=== PATIENT | male | born 1970 | race Two or more races ===

== ENCOUNTER 2024-03-01 14:26 | Emergency (ER) | payer BC, MEDICAID, SELFPAY ==
[2024-03-01 14:29] VITALS: BP 161/91; PULSE 100; RESP 18; TEMP 36.8; O2SAT 98; BMI 29.6
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
--- NOTE | 2024-03-01 15:32 | XR_ITS ---
Examination: CT brain head without contrast. 2-D sagittal coronal reconstructions Date and time of exam:March 01, 2024 1546 hrs. Indications: Patient fell today with injury of the head, head pain CTDI: vol (mGy):54.2 DLP: (mGycm):1137 Technique: Multiple CT axial sections of the brain have been obtained, 5 mm slice thickness. Contrast has not been administered. 2-D sagittal, coronal reconstructions have been obtained Low dose protocols were performed. One or more of the following dose reduction techniques were used; automated exposure control, adjustment of the mA and/or KV according to patient size, use of iterative reconstruction technique. Findings: No significant ventricular enlargement. Intra-axial or extra-axial hemorrhage density is not seen. No mass effect or midline shift Basal cisterns are not remarkable. Fourth ventricle is midline. Cranial vault intact. Impression: Negative for acute hemorrhage, mass effect or midline shift
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
[2024-03-01 16:00] VITALS: BP 140/81; PULSE 88; RESP 19; TEMP 36.6; O2SAT 98
--- NOTE | 2024-03-01 16:56 | PRELIM_ITS ---
CT scan of the head without intravenous contrast (axial sections with sagittal and coronal reformats) March 01, 2024 1546 hours Clinical History: Fell, hit head Comparison: None.Findings:No evidence of intracranial hemorrhage, mass effect or midline shift. The ventricles and CSF spaces are unremarka ble. There is atheromatous calcification of the intracranial arteries. The calvarium is intact. The m astoid air cells and the visualized paranasal sinuses are clear.Impression:No evidence of intracrania l hemorrhage, midline shift or calvarial fracture.Other findings as described above. Report Earle apodaca Signed By: Sunny King 03/01/2024 4:56:39 PM [EST]
[2024-03-01 18:06] VITALS: BP 140/86; PULSE 72; RESP 16; O2SAT 96
== END 2024-03-01 18:10 | disposition home or self-care (01) ==
PROVIDERS: Emergency Provider Emergency Medicine; PCP Family Medicine
DX: S09.90XA Unspecified injury of head, initial encounter (principal); G61.0 Guillain-Barre syndrome; W19.XXXA Unspecified fall, initial encounter
CPT/HCPCS: 70450; 99284

== ENCOUNTER 2024-09-18 17:18 | Emergency (ER) | payer MEDICAID, SELFPAY ==
[2024-09-18 17:54] VITALS: BP 129/77; PULSE 96; RESP 20; TEMP 36.8; O2SAT 94
--- NOTE | 2024-09-18 18:24 | EKG_ITS ---
[facility] Test Date: 2024-09-18 Pat Name: ZACHARY MARADIAGA Department: Room: - Gender: Male [employer]: : 1970 Requested By: Oscar Lyles Order Number: [id number] Reading MD: Oscar Lyles Measurements Intervals [place] Rate: 89 P: 49 MN: 161 QRS: 69 QRSD: 111 T: 63 QT: 351 QTc: 427 Interpretive Statements SINUS RHYTHM MODERATE INTRAVENTRICULAR CONDUCTION DELAY [110+ ms QRS DURATION] ST ELEVATION, PROBABLY EARLY REPOLARIZATION [ST ELEVATION WITH NORMALLY INFLECTED T-WAVE] Compared to ECG 08/04/2022 11:57:08 Intraventricular conduction delay now present ST (T wave) deviation now present Early repolarization now present /store/S0/[id number].pdf
--- NOTE | 2024-09-18 18:24 | XR_ITS ---
Examination: AP chest single view FINDINGS: AP sitting portable chest single view Date and time: September 18, 2024, 1846 hours Comparison August 04, 2022 INDICATIONS: Shortness of breath today. FINDINGS: Normal heart size Minor subsegmental atelectasis left base. No lobar pneumonia or pulmonary edema Intact osseous structures IMPRESSION: No pneumonia or pulmonary edema.
--- NOTE | 2024-09-18 18:25 | EDRME_ITS ---
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 Patient states it doesn't feel like it's from his ascites. Chief Complaint: Shortness of Breath/Dyspnea Time Seen by Provider: 09/18/24 17:40 Vital signs: Vital Signs Temperature 98.2 F 09/18/24 17:54 Pulse Rate 96 09/18/24 17:54 Respiratory Rate 20 09/18/24 17:54 Blood Pressure 129/77 09/18/24 17:54 Pulse Oximetry (%) 94 L 09/18/24 17:54 Oxygen Delivery Method Room Air 09/18/24 17:54
[2024-09-18 18:54] LABS: Lactate (Lactic Acid) 2.4 mMol/L (0.4-2.0)
[2024-09-18 19:03] LABS: Basophils # (Auto) 0.1 Thou/mm3 (0.0-0.2); Basophils % (Auto) 1 % (0-2.5); Eosinophils # (Auto) 0.1 Thou/mm3 (0.0-0.5); Eosinophils % (Auto) 2 % (0-10); Hematocrit 45.2 % (41.0-53.0); Hemoglobin 16.4 g/dL (13.5-16.0); Immature Granulocytes Auto 0.02 Thou/mm3 (0.00-0.00); Lymphocytes # (Auto) 2.1 Thou/mm3 (1.0-4.8); Lymphocytes % (Auto) 31 % (10-50); Mean Corpuscular HGB Conc 36.3 g/dl (31.0-37.0); Mean Corpuscular Hemoglobin 32.0 pg (25.0-35.0); Mean Corpuscular Volume 88 fL (80-100); Monocytes # (Auto) 1.0 Thou/mm3 (0.0-0.8); Monocytes % (Auto) 14 % (0-12); Neutrophils # (Auto) 3.6 Thou/mm3 (1.8-7.7); Neutrophils % (Auto) 53 % (37-80); Nucleated Red Blood Cell # 0.00 Thou/mm3 (0.00-0.00); Nucleated Red Blood Cell % 0 /100 WBC (0); Platelet Count 127 Thou/mm3 (140-440); RDW Standard Deviation 44.8 fL (35.1-43.9); Red Blood Count 5.13 Miln/mm3 (4.50-5.90); White Blood Count 6.8 Thou/mm3 (3.8-10.6)
[2024-09-18 19:19] LABS: B-Type Natriuretic Peptide < 20 pg/mL (0-100)
[2024-09-18 19:27] LABS: Alanine Aminotransferase 98 U/L (10-49); Albumin, Serum 4.4 gm/dL (3.5-5.0); Albumin/Globulin Ratio 1.2 (1.2-2.2); Alkaline Phosphatase 119 U/L (46-116); Anion Gap 12 (7-16); Aspartate Amino Transferase 117 U/L (0-34); BUN/Creatinine Ratio 9 Ratio (12-20); Bilirubin,Total 1.3 mg/dL (0.3-1.2); Blood Urea Nitrogen 6 mg/dL (9-23); Calcium 9.6 mg/dL (8.3-10.6); Calcium (Corrected) 9.6 mg/dL (8.5-10.1); Carbon Dioxide 21.5 mMol/L (20.0-31.0); Chloride 104 mMol/L (98-107); Creatinine (Component) 0.7 mg/dL (0.6-1.3); Globulin 3.6 gm/dL (2.3-3.5); Glucose 102 mg/dL (74-106); Osmolality,Calculated 271 (275-295); Potassium 4.4 mMol/L (3.4-5.1); Procalcitonin 0.14 ng/ml (0.0-0.49); Sodium 137 mMol/L (136-145); Total Protein 8.0 gm/dL (5.7-8.2); Troponin I < 0.020 ng/mL (0.0-0.045); eGFR > 60 See Note
[2024-09-18 21:50] VITALS: BP 141/76; PULSE 87; RESP 17; TEMP 37; O2SAT 96
[2024-09-18 21:54] LABS: Reflex Lactate? Y
--- NOTE | 2024-09-18 22:03 | PD.EDSOB ---
ED SOB =RME/HPI General Chief Complaint: Shortness of Breath/Dyspnea Stated Complaint: SOB X 1.5 weeks, worse today Time Seen by Provider: 09/18/24 17:40 Arrival date/time: 09/18/24 17:18 RME / HPI RME / HPI Narrative: 09/18/24 17:18 54M with history of HTN, alcoholic cirrhosis, and Guillain-[place] (last year) presents to ED with 1.5 weeks of worsening cough and SOB. Patient states it doesn't feel like it's from his ascites. DR. CHAPARRO MAIN ED EVALUATION: 54 y/o male with Hx of GB confined to wheelchair presenting with scantly productive cough. Denies fever, chills, nausea, and vomiting. Patient reports mild shortness of breath and dyspnea on exertion. No pleuritic chest pain or lower extremity pain. No other concerns or complaints expressed at this time. Related Data Home Medications ?Medication ?Instructions ?Recorded ?Confirmed ibuprofen 800 mg tablet 800 mg PO TID PRN Pain 08/20/19 09/22/23 lisinopril 20 mg tablet 20 mg PO QDAY 08/20/19 09/22/23 amlodipine 10 mg tablet 1 tab PO DAILY 10/07/21 09/22/23 lactulose 10 gram/15 mL oral 15 ml PO DAILY PRN Constipation 10/07/21 09/22/23 solution (Constulose) hydrochlorothiazide 12.5 mg tablet 12.5 mg PO DAILY 09/22/23 09/22/23 lorazepam 1 mg tablet 1 mg PO BID 09/22/23 09/22/23 pantoprazole 40 mg tablet,delayed 40 mg PO DAILY 09/22/23 09/22/23 release varenicline tartrate 1 mg tablet 1 mg PO BID 09/22/23 09/22/23 Previous Rx's ?Medication ?Instructions ?Recorded amlodipine 5 mg tablet 10 mg (2 x 5 mg) PO DAILY #60 tabs 09/28/23 folic acid 1 mg tablet 1 mg PO BID #60 tabs 09/28/23 gabapentin 300 mg capsule 300 mg PO TID #90 caps 09/28/23 hydrochlorothiazide 12.5 mg capsule 12.5 mg PO QDAY #30 caps 09/28/23 lactulose 20 gram/30 mL oral 10 g (15 mL) PO TID #900 mL 09/28/23 solution lisinopril 20 mg tablet 20 mg PO BID #60 tabs 09/28/23 melatonin 3 mg tablet 6 mg (2 x 3 mg) PO HS PRN Insomnia 09/28/23 #60 tabs thiamine mononitrate (vit B1) 100 100 mg PO BID #60 tabs 09/28/23 mg tablet ipratropium 20 mcg-albuterol 100 2 puff inhalation Q6H PRN 09/18/24 mcg/actuation mist for inhalation shortness of breath or wheezing #4 (Combivent Respimat) grams prednisone 20 mg tablet 40 mg PO QDAY 5 days #10 tabs 09/18/24 Allergies Allergy/AdvReac Type Severity Reaction Status Date / Time No Known Allergies Allergy Verified 10/08/21 12:22 Review of Systems Review of Systems Systems Reviewed: All systems reviewed, normal except as documented Past Medical History Past Medical History CARDIAC: Positive Cardiac Disorders and Hypertension GASTROINTESTINAL: Positive Gastrointestinal Disorders and Cirrhosis MUSCULOSKELETAL: Positive Musculoskeletal Disorders and Arthritis PSYCHO/SOCIAL: Positive Anxiety OTHER HISTORY: Positive Chicken Pox Family History FAMILY HISTORY: Positive Family Respiratory Disorders, Family Cardiac Disorders, Family Gastrointestinal Problems and Family Surgery Social History SMOKING STATUS: Former smoker ED Exam Narrative Physical exam: GEN. APPEARANCE: The patient is alert awake oriented X-3 in no distress, appears uncomfortable, does not look ill/toxic.? Patient has good eye contact.? Patient is cooperative. VITALS:? All vitals were reviewed and the pulse ox is 99% on room air which is normal according to my interpretation. HEENT: Normocephalic, atraumatic.? Pupils are equal and reactive.? Oral mucosa is moist. Patent Nares NECK: Supple, nontender, no thyromegaly, no meningismus, no JVD, no step offs CHEST: Symmetrical, atraumatic, and with equal expansion , Nontender on palpation no deformity and no crepitus. CARDIOVASCULAR: Heart regular rhythm no murmur or gallop rub or extra beats. LUNGS: Diminished breath sounds bilaterally with symmetrical chest rise.? No laboring tachypnea or wheezing.? No intercostal subcostal retraction.? No rales and no rhonchi. ABDOMEN: Soft, flat, nontender to palpation, no guarding or rebound tenderness.? There are no abnormal masses palpated.? Active and normal bowel sounds. EXTREMITIES: Nontender.? Trace edema.? No cyanosis.? Patient is able to move all 4 extremities well, with full ROM and good CSM. SKIN: Warm and dry, no jaundice or rashes noted. MUSCULOSKELETAL: No lubar or midline bony tenderness.? There is no CVA tenderness.? No paraspinal muscle spasm or tenderness. NEURO: Patient is COWAN x 4, Cranial nerves II through XII grossly intact.? There is no focal neurologic deficits noted.? GCS is 15, PNS and RESPIRATORY ASSISTANT appear grossly intact. PSYCHIATRIC: Patient is in normal mood and affect, cooperative, no SI or HI or hallucinations. Course Course Course Narrative: CXR is ordered for determining the etiology of shortness of breath. Quality Measures none Orders Category Date Time Status Bedside COVID-19 Antigen Test NOW Care 09/18/24 18:26 Active Bedside Influenza A&B Antigen Test NOW Care 09/18/24 18:26 Completed EKG (ED ONLY) *Do not use* NOW Care 09/18/24 18:24 Completed EKG (ED Only) Stat Exams 09/18/24 18:24 Draft XR chest 1V portable Stat Exams 09/18/24 18:24 Completed B-Type Natriuretic Peptide Stat Lab 09/18/24 18:47 Completed CBC Stat Lab 09/18/24 18:47 Completed Comprehensive Metabolic Panel Stat Lab 09/18/24 18:47 Completed Lactate (Lactic Acid) Stat Lab 09/18/24 18:47 Completed Lactic Acid, 3 HR Stat Lab 09/18/24 22:13 Completed Procalcitonin Stat Lab 09/18/24 18:47 Completed Troponin I Stat Lab 09/18/24 18:47 Completed Albuterol/Ipratr Rt Meera [Duoneb Rt Meera] Med 09/18/24 22:00 Discontinued 3 ml INH X1 ONE Vital Signs Vital signs: Vital Signs Temperature 98.2 F 09/18/24 17:54 Pulse Rate 96 09/18/24 17:54 Respiratory Rate 20 09/18/24 17:54 Blood Pressure 129/77 09/18/24 17:54 Pulse Oximetry (%) 94 L 09/18/24 17:54 Oxygen Delivery Method Room Air 09/18/24 17:54 Shortness of Breath / Dyspnea MDM Narrative MDM Narrative:: Scribe Attestation: I, Pina Estrada, am scribing for and in the presence of Dr. Chaparro. Provider Notation: Although this document has been carefully reviewed, there may still be some phonetic and other typographical errors.? These errors are purely grammatical due to imperfections in the software program and should not be construed in any way to? compromise the substance of the patient's medical care during this visit. 54 y/o male with Hx of GB confined to wheelchair presenting with scantly productive cough. Denies fever, chills, nausea, and vomiting. Patient reports mild shortness of breath and dyspnea on exertion. Please see PE findings. Laboratory markers and chest x-ray are unremarkable. Patient treated with nebulizer therapy with subjective improvement and remarkable increased air flow. Will treat for viral bronchitis. Disposition to home with PO steroids and inhaler, Prednisone and inhaler. Patient data External records reviewed:: [facility] previous records ( 03/01/24. Patient was seen for Closed head injury.) Clinical information provided by:: patient Social determinants that could affect healthcare access:: none Patient has the following chronic illnesses:: Hypertension, Cirrhosis, Arthritis, Anxiety, GB How is presenting disease/condition affected by chronic disease/condition?: exacerbated by Evaluation data The following diagnostics were reviewed and interpreted by me:: lab results, radiology exam(s) and EKG tracing(s) (EKG at 18:36 shows normal sinus rhythm at 89, pathological st elevation, no ventricular ectopy, axis slightly rightward, intervals normal, per my interpretation.) Lab and/or radiology exams considered but not ordered:: None Interpretation Summary: RADIOLOGY Chest X-Ray: Patient: ZACHARY MARADIAGA Med. Record#: [id number] Birthdate: 1970 Age/Sex: 54 / M Location: [facility] Attending Dr: Ordering Physician: Oscar Lyles PA-C Date of Service: 09/18/24 Procedure(s): XR chest 1V portable Accession Number(s): [id number] cc: Ramesh Montgomery MD; Oscar Lyles PA-C; Parag Cisneros MD~ Examination: AP chest single view FINDINGS: AP sitting portable chest single view Date and time: September 18, 2024, 1846 hours Comparison August 04, 2022 INDICATIONS: Shortness of breath today. FINDINGS: Normal heart size Minor subsegmental atelectasis left base. No lobar pneumonia or pulmonary edema Intact osseous structures IMPRESSION: No pneumonia or pulmonary edema. Dictated By: Ramesh Montgomery MD Signed By: <Electronically signed by Ramesh Montgomery MD in OV> 09/18/24 1930 Medications / Prescriptions Medications or Prescriptions considered but not ordered:: None Medication administrations:: Medication Administration History Discontinued Medications Albuterol/Ipratropium (Albuterol/Ipratropium (Duoneb) Rt Meera 3 Ml Nebu) 3 ml INH X1 ONE Stop: 09/18/24 22:01 Last Admin: 09/18/24 22:11 Dose: 3 ml Documented By: DM See above Consultations Consultation(s) initiated? (list below): No Diagnosis Shortness of Breath Differential Diagnosis: congestive heart failure, community acquired pneumonia, asthma with exacerbation and pulmonary embolism Most likely diagnosis given after review of the tests above:: Viral bronchitis Admission Indicated Admission indicated?: not indicated Explain why admission is indicated or not indicated:: Patient does not meet admission criteria. Admission Request Was there a request for admission?: No Disposition Plan Disposition Plan: Discharge Discharge Attestation Discharge Attestation: The patient and all family members were given an opportunity to ask questions and understood the discharge instructions. Discharge instructions specifically effects, indications for sooner follow up or return to the emergency department, and the expected course of current diagnosis. Patient condition: Stable Discharge Plan Plan Patient Disposition: HOME (Self Care) Patient condition on transfer: Stable Prescriptions/Referrals Prescriptions/Med Rec: New prednisone 20 mg tablet 40 mg PO QDAY MDD 2 tab 5 Days Qty: 10 0RF Taper: Prednisone Taper 40 mg DAILY for 5 Days and 0 Hour Combivent Respimat 20-100 mcg/actuation mist 2 puff inhalation Q6H PRN (Reason: shortness of breath or wheezing) Qty: 4 0RF No Action amlodipine 10 mg tablet 1 tab PO DAILY Patient Comments: TAKE 1 TABLET BY MOUTH ONCE DAILY lactulose [Constulose] 10 gram/15 mL solution 15 ml PO DAILY PRN (Reason: Constipation) Patient Comments: TAKE 15 ML BY MOUTH TWICE DAILY FOR 30 DAYS ibuprofen 800 mg Tablet 800 mg PO TID PRN (Reason: Pain) lisinopril 20 mg tablet 20 mg PO QDAY Patient Comments: TAKE 1 TABLET BY MOUTH EVERY DAY pantoprazole 40 mg tablet,delayed release (DR/EC) 40 mg PO DAILY Patient Comments: TAKE 1 TABLET BY MOUTH ONCE DAILY hydrochlorothiazide 12.5 mg tablet 12.5 mg PO DAILY Patient Comments: TAKE 1 TABLET BY MOUTH ONCE DAILY IN THE MORNING lorazepam 1 mg tablet 1 mg PO BID varenicline tartrate 1 mg tablet 1 mg PO BID Patient Comments: TAKE 1 TABLET BY MOUTH TWICE DAILY amlodipine 5 mg Tablet 10 mg PO DAILY Qty: 60 0RF gabapentin 300 mg Capsule 300 mg PO TID Qty: 90 0RF folic acid 1 mg Tablet 1 mg PO BID Qty: 60 0RF lisinopril 20 mg Tablet 20 mg PO BID Qty: 60 0RF melatonin 3 mg Tablet 6 mg PO HS PRN (Reason: Insomnia) Qty: 60 0RF hydrochlorothiazide 12.5 mg Capsule 12.5 mg PO QDAY Qty: 30 0RF lactulose 20 gram/30 mL Solution 10 g PO TID Qty: 900 0RF thiamine mononitrate (vit B1) 100 mg Tablet 100 mg PO BID Qty: 60 0RF Referrals: Parag Cisneros MD [Primary Care Provider] - In 1 week Problem List Clinical Impression: Bronchitis Patient/Caregiver Discharge Instructions Other Activity Instructions:: Increase fluids/medication as directed/return if worsening i.e. progressive shortness of breath fevers or sustained chest pain Education Materials: ED Bronchitis, No Antibiotic (Adult) Additional Instructions: Follow-up with PMD in 5 to 7 days. Medication as directed. Return for persistently high fevers escalating chest pain/shortness of breath or worsening illness. Print Language: Amharic Stand Alone Forms: Mary Jane Award Info., Patient Portal Info Letter
[2024-09-18] MEDS: ALBUTEROL/IPRATROPIUM (Duoneb) RT SOL 3 ML NEBU INH (22:11)
[2024-09-18 22:13] VITALS: PULSE 93; RESP 18; O2SAT 99
[2024-09-18 22:20] LABS: Lactic Acid, 3 HR 2.7 mMol/L (0.4-2.0)
== END 2024-09-18 23:19 | disposition home or self-care (01) ==
PROVIDERS: Physician Assistant; Emergency Provider Emergency Medicine; PCP Family Medicine
DX: J40 Bronchitis, not specified as acute or chronic (principal); I10 Essential (primary) hypertension; I45.89 Other specified conduction disorders; Z87.891 Personal history of nicotine dependence; Z99.3 Dependence on wheelchair
CPT/HCPCS: 36415; 71045; 80053; 83605; 83880; 84145; 84484; 85025; 87400; 87811; 93005; 94640; 99284; A9270

== ENCOUNTER 2024-10-08 16:52 | Emergency (ER) | payer MEDICAID, SELFPAY ==
[2024-10-08 16:54] VITALS: BMI 37.2
[2024-10-08 17:05] VITALS: BP 134/72; PULSE 95; RESP 18; TEMP 36.8; O2SAT 95
--- NOTE | 2024-10-08 17:18 | XR_ITS ---
Examination: CT abdomen with intravenous contrast CT pelvis with intravenous contrast 2-D coronal reconstructions 2-D sagittal reconstructions Date and time of exam:October 08, 2028 at 2020 hours Comparison June 20, 2017 INDICATIONS: Abdominal pain 4 days, blood clots in the stool since last night. CTDI: vol (mGy) 12.5 DLP: (mGycm) 800 Technique: Multiple axial sections of the abdomen and pelvis have been obtained. 64 slice high-resolution scanner used. 3 mm axial sections have been obtained, post intravenous injection 60 cc Isovue 370 2-D sagittal, coronal reconstructions obtained. Low dose protocols were performed. One or more of the following dose reduction techniques were used; automated exposure control, adjustment of the mA and/or KV according to patient size, use of iterative reconstruction technique. Findings: Cirrhosis, liver lobular in contour, no focal liver lesions Contracted gallbladder Spleen is not enlarged No pancreatic or adrenal mass. No renal or ureteral calculi, no hydronephrosis Abdominal aortic calcification no aneurysmal dilatation 12 mm fat-containing umbilical hernia Normal appendix No bowel obstruction No prostatic megaly Contracted urinary bladder Moderate osteopenia IMPRESSION: Cirrhosis, no focal liver lesions Negative for pancreatitis No hydronephrosis Normal appendix No abnormal contrast extravasation in the gastrointestinal tract on this non-CTA study
--- NOTE | 2024-10-08 17:18 | PD.EDRME ---
Rapid Medical Screening Exam RME Arrival date/time: 10/08/24 16:52 54-year-old male everyday drinker presents to the emergency department today for complaint of abdominal pain and rectal bleeding Chief Complaint: General Adult/Misc Complain Time Seen by Provider: 10/08/24 16:58 Vital signs: Vital Signs Temperature 98.2 F 10/08/24 17:05 Pulse Rate 95 10/08/24 17:05 Respiratory Rate 18 10/08/24 17:05 Blood Pressure 134/72 H 10/08/24 17:05 Pulse Oximetry (%) 95 10/08/24 17:05 Oxygen Delivery Method Room Air 10/08/24 17:05
[2024-10-08 17:49] LABS: Basophils # (Auto) 0.1 Thou/mm3 (0.0-0.2); Basophils % (Auto) 2 % (0-2.5); Eosinophils # (Auto) 0.1 Thou/mm3 (0.0-0.5); Eosinophils % (Auto) 2 % (0-10); Hematocrit 47.1 % (41.0-53.0); Hemoglobin 16.1 g/dL (13.5-16.0); Immature Granulocytes Auto 0.02 Thou/mm3 (0.00-0.00); Lymphocytes # (Auto) 1.5 Thou/mm3 (1.0-4.8); Lymphocytes % (Auto) 32 % (10-50); Mean Corpuscular HGB Conc 34.2 g/dl (31.0-37.0); Mean Corpuscular Hemoglobin 31.6 pg (25.0-35.0); Mean Corpuscular Volume 93 fL (80-100); Monocytes # (Auto) 0.6 Thou/mm3 (0.0-0.8); Monocytes % (Auto) 13 % (0-12); Neutrophils # (Auto) 2.5 Thou/mm3 (1.8-7.7); Neutrophils % (Auto) 52 % (37-80); Nucleated Red Blood Cell # 0.00 Thou/mm3 (0.00-0.00); Nucleated Red Blood Cell % 0 /100 WBC (0); Platelet Count 143 Thou/mm3 (140-440); RDW Standard Deviation 48.3 fL (35.1-43.9); Red Blood Count 5.09 Miln/mm3 (4.50-5.90); White Blood Count 4.7 Thou/mm3 (3.8-10.6)
[2024-10-08 18:06] LABS: INR 1.1 (0.9-1.3); Partial Thromboplastin Time 28.9 Seconds (22.0-36.0); Prothrombin Time 12.2 Seconds (9.0-12.2)
[2024-10-08 18:11] LABS: Alanine Aminotransferase 94 U/L (10-49); Albumin, Serum 4.3 gm/dL (3.5-5.0); Albumin/Globulin Ratio 1.2 (1.2-2.2); Alcohol, Blood Medical 31.7 mg/dL (0-10.0); Alkaline Phosphatase 106 U/L (46-116); Anion Gap 13 (7-16); Aspartate Amino Transferase 114 U/L (0-34); BUN/Creatinine Ratio 6 Ratio (12-20); Bilirubin,Total 1.2 mg/dL (0.3-1.2); Blood Urea Nitrogen < 5 mg/dL (9-23); Calcium 9.1 mg/dL (8.3-10.6); Calcium (Corrected) 9.1 mg/dL (8.5-10.1); Carbon Dioxide 19.9 mMol/L (20.0-31.0); Chloride 102 mMol/L (98-107); Creatinine (Component) 0.8 mg/dL (0.6-1.3); Estimated Creatinine Clearance 127.6 mL/min (>60); Globulin 3.6 gm/dL (2.3-3.5); Glucose 176 mg/dL (74-106); Lipase 38 U/L (12-53); Osmolality,Calculated 271 (275-295); Potassium 4.0 mMol/L (3.4-5.1); Sodium 135 mMol/L (136-145); Total Protein 7.9 gm/dL (5.7-8.2); eGFR > 60 See Note
[2024-10-08 19:24] LABS: Amphetamine/Methamp Scrn,U Negative (Negative); Barbiturate Screen,Urine Negative (Negative); Benzodiazepines Screen,Urine Negative (Negative); Benzoylecgonine Screen, Ur Negative (Negative); Fentanyl Screen,Urine Negative (Negative); Opiate Screen,Urine Negative (Negative); THC Screen,Urine Negative (Negative)
[2024-10-08 21:10] VITALS: BP 127/81; PULSE 81; RESP 18; TEMP 37; O2SAT 96
--- NOTE | 2024-10-08 22:28 | PD.EDABDPN ---
ED Abdominal Pain RME/HPI General Chief Complaint: General Adult/Misc Complain Stated complaint: BLOOD IN STOOL LAST NOC, ABD PAIN X 2-3 DAYS Time seen by provider: 10/08/24 16:58 Arrival date/time: 10/08/24 16:52 Source: patient and family Limitations: no limitations RME / HPI RME / HPI narrative: 54-year-old male with a long history of alcohol abuse is here today with lower abdominal cramping and noted some blood with bowel movements. He states he normally drinks 12-15 beers a day but did not drink today. He states he takes ibuprofen 600 mg twice daily. He has a history of hypertension without diabetes. 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 He has known cirrhosis. 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 Denies any history of colonoscopy. He denies any lightheadedness, palpitations, chest pain, or hematemesis. He has no near syncope. No fevers or chills. He has no other acute complaints. Related Data Home Medications ?Medication ?Instructions ?Recorded ?Confirmed ibuprofen 800 mg tablet 800 mg PO TID PRN Pain 08/20/19 09/22/23 lisinopril 20 mg tablet 20 mg PO QDAY 08/20/19 09/22/23 amlodipine 10 mg tablet 1 tab PO DAILY 10/07/21 09/22/23 lactulose 10 gram/15 mL oral 15 ml PO DAILY PRN Constipation 10/07/21 09/22/23 solution (Constulose) hydrochlorothiazide 12.5 mg tablet 12.5 mg PO DAILY 09/22/23 09/22/23 lorazepam 1 mg tablet 1 mg PO BID 09/22/23 09/22/23 pantoprazole 40 mg tablet,delayed 40 mg PO DAILY 09/22/23 09/22/23 release varenicline tartrate 1 mg tablet 1 mg PO BID 09/22/23 09/22/23 Previous Rx's ?Medication ?Instructions ?Recorded amlodipine 5 mg tablet 10 mg (2 x 5 mg) PO DAILY #60 tabs 09/28/23 folic acid 1 mg tablet 1 mg PO BID #60 tabs 09/28/23 gabapentin 300 mg capsule 300 mg PO TID #90 caps 09/28/23 hydrochlorothiazide 12.5 mg capsule 12.5 mg PO QDAY #30 caps 09/28/23 lactulose 20 gram/30 mL oral 10 g (15 mL) PO TID #900 mL 09/28/23 solution lisinopril 20 mg tablet 20 mg PO BID #60 tabs 09/28/23 melatonin 3 mg tablet 6 mg (2 x 3 mg) PO HS PRN Insomnia 09/28/23 #60 tabs thiamine mononitrate (vit B1) 100 100 mg PO BID #60 tabs 09/28/23 mg tablet ipratropium 20 mcg-albuterol 100 2 puff inhalation Q6H PRN 09/18/24 mcg/actuation mist for inhalation shortness of breath or wheezing #4 (Combivent Respimat) grams Allergies Allergy/AdvReac Type Severity Reaction Status Date / Time No Known Allergies Allergy Verified 10/08/24 16:56 Review of Systems Review of Systems Systems Reviewed: All systems reviewed, normal except as documented ED Exam General Limitations: Present no limitations General appearance: Present alert and in no apparent distress Head Head exam: Present atraumatic Eye Eye exam: Present normal appearance, PERRL and EOMI ENT ENT exam: Present normal exam, normal oropharynx and mucous membranes moist Neck Neck exam: Present normal inspection, full ROM and trachea midline Chest Chest inspection: Present normal inspection and symmetric chest wall rise Respiratory Respiratory exam: Present normal lung sounds bilaterally Cardiovascular Cardiovascular exam: Present regular rate, normal rhythm and normal heart sounds Abdominal Exam Abdominal exam: Present distention and normal bowel sounds; Absent tenderness or guarding Rectal Exam Rectal exam: Present normal rectal tone, heme (+) stool and other (Female tech present during the exam.) Extremities Exam Extremities exam: Present normal inspection and full ROM Back Exam Back exam: Present normal inspection and full ROM Neurological Exam Neurological exam: Present alert and oriented X3 Psychiatric Psychiatric exam: Present normal affect and normal mood Skin Skin exam: Present warm, dry, intact and normal color Course Quality Measures none Orders Category Date Time Status CT Screening NOW Care 10/08/24 17:18 Active Insert IV NOW Care 10/08/24 17:18 Active Occult Blood,Stool (Nursing) NOW Care 10/08/24 22:[address] abdomen pelvis w con Stat Exams 10/08/24 17:18 Completed Alcohol, Blood Medical Stat Lab 10/08/24 17:41 Completed CBC Stat Lab 10/08/24 17:41 Completed Comprehensive Metabolic Panel Stat Lab 10/08/24 17:41 Completed Drug Screen,Urine Stat Lab 10/08/24 18:45 Completed Lipase Stat Lab 10/08/24 17:41 Completed Partial Thromboplastin Time Stat Lab 10/08/24 17:41 Completed Prothrombin Time with INR Stat Lab 10/08/24 17:41 Completed Vital Signs Vital signs: Vital Signs Temperature 98.2 F 10/08/24 17:05 Pulse Rate 95 10/08/24 17:05 Respiratory Rate 18 10/08/24 17:05 Blood Pressure 134/72 H 10/08/24 17:05 Pulse Oximetry (%) 95 10/08/24 17:05 Oxygen Delivery Method Room Air 10/08/24 17:05 Abdominal Pain MDM MDM Narrative MDM Narrative:: 54-year-old male with a long history of alcohol abuse is here today with lower abdominal cramping and noted some blood with bowel movements. He states he normally drinks 12-15 beers a day but did not drink today. He states he takes ibuprofen 600 mg twice daily. He has a history of hypertension without diabetes. 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 He has known cirrhosis. 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 Denies any history of colonoscopy. He denies any lightheadedness, palpitations, chest pain, or hematemesis. He has no near syncope. No fevers or chills. He has no other acute complaints. On exam patient is nontoxic-appearing and in no visible signs distress. Vital signs are stable without any tachycardia. Abdomen is nontender. CBC reveals no leukocytosis, his hemoglobin 16.1 hematocrit is 47.1. His glucose is 176, AST is 114, ALT 94, alk phos is unremarkable. Lipase is unremarkable. Alcohol level is 31.7. Not enhanced CT abdomen pelvis is unremarkable. We discussed the need to discontinue ibuprofen and slowly titrate alcohol use downward. Patient was advised to follow-up with his primary doctor within the next week. He is also advised to contact Dr. Guzman gastroenterology for outpatient follow-up to consider colonoscopy. We discussed return precautions. He agrees to have a low threshold for return here for any worsening changes. Patient data External records reviewed:: None Clinical information provided by:: patient and family Social determinants that could affect healthcare access:: alcohol use Patient has the following chronic illnesses:: Cirrhosis, alcohol abuse, hypertension, Guillain-Plascencia? How is presenting disease/condition affected by chronic disease/condition?: exacerbated by Evaluation data The following diagnostics were reviewed and interpreted by me:: lab results (No leukocytosis or anemia) and radiology exam(s) (CT of the abdomen pelvis is unremarkable) Lab and/or radiology exams considered but not ordered:: n/a Interpretation Summary: Workup was unremarkable exception of elevated alcohol level and Hemoccult test Medications / Prescriptions Medications or Prescriptions considered but not ordered:: n/a Medication administrations:: n/a Consultations Consultation(s) initiated? (list below): No Diagnosis Differential diagnosis abdominal pain: abdominal pain, diverticulitis, gastroenteritis and pancreatitis Most likely diagnosis given after review of the tests above:: Alcohol abuse, lower GI bleed Admission Indicated Admission indicated?: not indicated Admission Request Was there a request for admission?: No Disposition Plan Disposition Plan: Discharge Discharge Attestation Discharge Attestation: The patient and all family members were given an opportunity to ask questions and understood the discharge instructions. Discharge instructions specifically effects, indications for sooner follow up or return to the emergency department, and the expected course of current diagnosis. Patient condition: Stable Discharge Plan Plan Patient Disposition: HOME (Self Care) Patient condition on transfer: Stable Prescriptions/Referrals Prescriptions/Med Rec: No Action amlodipine 10 mg tablet 1 tab PO DAILY Patient Comments: TAKE 1 TABLET BY MOUTH ONCE DAILY lactulose [Constulose] 10 gram/15 mL solution 15 ml PO DAILY PRN (Reason: Constipation) Patient Comments: TAKE 15 ML BY MOUTH TWICE DAILY FOR 30 DAYS ibuprofen 800 mg Tablet 800 mg PO TID PRN (Reason: Pain) lisinopril 20 mg tablet 20 mg PO QDAY Patient Comments: TAKE 1 TABLET BY MOUTH EVERY DAY pantoprazole 40 mg tablet,delayed release (DR/EC) 40 mg PO DAILY Patient Comments: TAKE 1 TABLET BY MOUTH ONCE DAILY hydrochlorothiazide 12.5 mg tablet 12.5 mg PO DAILY Patient Comments: TAKE 1 TABLET BY MOUTH ONCE DAILY IN THE MORNING lorazepam 1 mg tablet 1 mg PO BID varenicline tartrate 1 mg tablet 1 mg PO BID Patient Comments: TAKE 1 TABLET BY MOUTH TWICE DAILY amlodipine 5 mg Tablet 10 mg PO DAILY Qty: 60 0RF gabapentin 300 mg Capsule 300 mg PO TID Qty: 90 0RF folic acid 1 mg Tablet 1 mg PO BID Qty: 60 0RF lisinopril 20 mg Tablet 20 mg PO BID Qty: 60 0RF melatonin 3 mg Tablet 6 mg PO HS PRN (Reason: Insomnia) Qty: 60 0RF hydrochlorothiazide 12.5 mg Capsule 12.5 mg PO QDAY Qty: 30 0RF lactulose 20 gram/30 mL Solution 10 g PO TID Qty: 900 0RF thiamine mononitrate (vit B1) 100 mg Tablet 100 mg PO BID Qty: 60 0RF Combivent Respimat 20-100 mcg/actuation mist 2 puff inhalation Q6H PRN (Reason: shortness of breath or wheezing) Qty: 4 0RF Referrals: Mari Guzman MD [Physician] - In 1 week No Primary/Family,Physician [Primary Care Provider] - In 1 week Problem List Clinical Impression: Lower GI bleed, Alcoholism, Cirrhosis Patient/Caregiver Discharge Instructions Education Materials: Treating Cirrhosis, ED Cirrhosis Additional Instructions: - It is important that you stop taking ibuprofen daily. - It is also important that you decrease your alcohol abuse as this is causing liver damage. Slowly decrease your alcohol use and do not abruptly discontinue alcohol consumption. - Contact GI tomorrow to schedule close follow-up appointment. - Return to the ER anytime for any worsening changes including palpitations, shortness of breath, severe pain, worsening bleeding, lightheadedness, or any other emergent concerns. Print Language: Ugandan Stand Alone Forms: Mary Jane Award Info., Patient Portal Info Letter
[2024-10-08 22:54] VITALS: BP 122/76; PULSE 76; RESP 16; TEMP 36.8; O2SAT 98
== END 2024-10-08 22:57 | disposition home or self-care (01) ==
PROVIDERS: Nurse Practitioner Primary Care; Emergency Provider Emergency Medicine
DX: K92.1 Melena (principal); F10.20 Alcohol dependence, uncomplicated; K74.60 Unspecified cirrhosis of liver; Y90.1 Blood alcohol level of 20-39 mg/100 ml
CPT/HCPCS: 36415; 74177; 80053; 80307; 80320; 83690; 85025; 85610; 85730; 99283; A4649; Q9967; G0480